=== PATIENT | male | born 1970 | race Caucasian/White ===

== ENCOUNTER 2016-04-17 15:21 | Emergency (ER) | payer OTHER ==
[~2016-04-17] VITALS: Ht 175.3 cm; Wt 95.0 kg
[2016-04-17 15:48] VITALS: BP 117/79; PULSE 78; RESP 16; TEMP 98.5; O2SAT 99
[2016-04-17] MEDS ORDERED: SODIUM CHLORIDE 0.9% FLUSH 5 ML FLUSH IVF PRN (17:00)
[2016-04-17 17:35] VITALS: BP 125/84; PULSE 68; RESP 14; O2SAT 98
--- NOTE | 2016-04-17 17:41 | PD ---
HPI . Right flank pain Chief Complaint: Abdominal Pain Time Seen by Provider: 16:59 Travel History International Travel<30 days: No Contact w/Intl Traveler<30days: No Traveled to known affect area: No History of Present Illness HPI Patient presents complaining with a two-week history of worsening right side pain. He states that it started in his back and migrated to his abdomen. It now hurts in both the back and the abdomen. The baby is sitting position and relieved by standing or lying. He has had no associated symptoms. Specifically no fever, no nausea or vomiting, no urinary tract symptoms. He states that he was seen at an urgent care and had a urine done which was negative. 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, inherited ear disorder) Social History Alcohol Use: No Tobacco Use: No Substance Use: No Allergies-Medications (Allergen,Severity, Reaction): Coded Allergies: No Known Allergies (Unverified , 04/17/16) Review of Systems Except as stated in HPI: all other systems reviewed are Neg General / Constitutional: No: Fever, Chills Gastrointestinal: Positive: Abdominal Pain, No: Nausea, Vomiting, Diarrhea Genitourinary: No: Urgency, Frequency, Dysuria, Hematuria Musculoskeletal: Positive: Myalgias (in the right flank and abdomen.) Physical Exam Narrative GENERAL: Healthy-appearing man who does not appear to be in any distress at this time. SKIN: Warm and dry. HEAD: Atraumatic. Normocephalic. EYES: Pupils equal and round. ENT: No nasal bleeding or discharge. Mucous membranes pink and moist. He does have a hearing aid in his right ear. NECK: Trachea midline. Neck is supple. CARDIOVASCULAR: Regular rate and rhythm. Heart sounds are normal. RESPIRATORY: No accessory muscle use. Lungs are clear with full and equal breath sounds. GASTROINTESTINAL: Abdomen soft. Mild right-sided tenderness. No guarding or rebound. Nondistended. MUSCULOSKELETAL: No obvious deformities. No edema. No CVA tenderness. NEUROLOGICAL: Awake and alert. No obvious cranial nerve deficits. Motor grossly within normal limits. Normal speech. PSYCHIATRIC: Appropriate mood and affect; insight and judgment normal. Data Data Last Documented VS Vital Signs Date Time Temp Pulse Resp B/P Pulse Ox O2 Delivery O2 Flow Rate FiO2 1/6/17 17:35 98 Room Air 04/17/16 17:35 68 14 125/84 04/17/16 15:48 98.5 Orders Basic Metabolic Panel (Bmp) (04/17/16 17:00) Complete Blood Count With Diff (04/17/16 17:00) Urinalysis - C+S If Indicated (04/17/16 17:00) Ct Abd/Pel W Iv Contrast(Rout) (04/17/16 17:00) Iv Access Insert/Monitor (04/17/16 17:00) Ecg Monitoring (04/17/16 17:00) Oximetry (04/17/16 17:00) Sodium Chloride 0.9% Flush (Ns Flush) (04/17/16 17:00) Sodium Chlor 0.9% 1000 Ml Inj (Ns 1000 M (04/17/16 18:45) Morphine Inj (Morphine Inj) (04/17/16 18:45) Ondansetron Inj (Zofran Inj) (04/17/16 18:45) Iohexol 350 Inj (Omnipaque 350 Inj) (04/17/16 18:38) Diphenhydramine Inj (Benadryl Inj) (04/17/16 19:00) Labs Laboratory Tests Test 04/17/16 04/17/16 17:30 18:15 White Blood Count 5.6 TH/MM3 Red Blood Count 5.43 MIL/MM3 Hemoglobin 15.5 GM/DL Hematocrit 47.1 % Mean Corpuscular Volume 86.9 FL Mean Corpuscular Hemoglobin 28.5 PG Mean Corpuscular Hemoglobin 32.9 % Concent Red Cell Distribution Width 13.5 % Platelet Count 216 TH/MM3 Mean Platelet Volume 8.1 FL Neutrophils (%) (Auto) 54.0 % Lymphocytes (%) (Auto) 32.8 % Monocytes (%) (Auto) 7.4 % Eosinophils (%) (Auto) 3.6 % Basophils (%) (Auto) 2.2 % Neutrophils # (Auto) 3.1 TH/MM3 Lymphocytes # (Auto) 1.8 TH/MM3 Monocytes # (Auto) 0.4 TH/MM3 Eosinophils # (Auto) 0.2 TH/MM3 Basophils # (Auto) 0.1 TH/MM3 CBC Comment DIFF FINAL Differential Comment Sodium Level 144 MEQ/L Potassium Level 4.0 MEQ/L Chloride Level 108 MEQ/L Carbon Dioxide Level 28.3 MEQ/L Anion Gap 8 MEQ/L Blood Urea Nitrogen 21 MG/DL Creatinine 1.30 MG/DL Estimat Glomerular Filtration 60 ML/MIN Rate Random Glucose 112 MG/DL Calcium Level 8.7 MG/DL Urine Collection Type VOIDED Urine Color STRAW Urine Turbidity CLEAR Urine pH 6.0 Urine Specific [place] 1.020 Urine Protein NEG mg/dL Urine Glucose (UA) NEG mg/dL Urine Ketones NEG mg/dL Urine Occult Blood NEG Urine Nitrite NEG Urine Bilirubin NEG Urine Leukocyte Esterase TRACE Urine WBC 3-5 /hpf Urine Squamous Epithelial 0-5 /hpf Cells Microscopic Urinalysis Comment CULT NOT INDICATED MDM Medical Decision Making Medical Screen Exam Complete: Yes Emergency Medical Condition: Yes Differential Diagnosis Differential diagnosis of flank pain includes but is not limited to kidney stone , pyelonephritis, musculoskeletal pain, PE Narrative Course Patient presents for evaluation of flank pain which has been ongoing for about 2 weeks. CBC has a normal white count. UA is negative. CT shows some constipation. Diagnosis Primary Impression: Right flank pain Additional Impression: Constipation Qualified Code: K59.00 - Constipation, unspecified constipation type Additional Instructions: Milk of magnesia until stools pass easily Disposition: 01 DISCHARGE HOME Condition: Stable Alaina Marcano MD Apr 17, 2016 17:41
[2016-04-17 17:52] LABS: AUTOMATED NEUTROPHIL # 3.1 TH/MM3 (1.8-7.7); BASOPHIL # 0.1 TH/MM3 (0-0.2); BASOPHIL % 2.2 % (0.0-2.0); EOSINOPHIL # 0.2 TH/MM3 (0-0.4); EOSINOPHIL % 3.6 % (0.0-4.0); HEMATOCRIT 47.1 % (39.0-51.0); HEMO FLAGS DIFF FINAL; LYMPH % 32.8 % (9.0-44.0); LYMPHOCYTE # 1.8 TH/MM3 (1.0-4.8); MEAN CELL VOLUME 86.9 FL (80.0-100.0); MEAN CORPUSCULAR HEMOGLOBIN 28.5 PG (27.0-34.0); MEAN CORPUSCULAR HGB CONC 32.9 % (32.0-36.0); MONO % 7.4 % (0.0-8.0); PLATELET COUNT 216 TH/MM3 (150-450); RED BLOOD COUNT 5.43 MIL/MM3 (4.50-5.90); RED CELL DISTRIBUTION WIDTH 13.5 % (11.6-17.2); WHITE BLOOD COUNT 5.6 TH/MM3 (4.0-11.0)
[2016-04-17 18:05] LABS: BICARBONATE 28.3 MEQ/L (21.0-32.0)
[2016-04-17 18:22] LABS: BLOOD, URINE NEG (NEG); GLUCOSE,URINE NEG (NEG); KETONE, URINE NEG (NEG); NITRITE,URINE NEG (NEG)
[2016-04-17] MEDS ORDERED: IOHEXOL 350 MG/ML 10 ML VIAL (for RAD DIAG) IV ONE (18:38)
[2016-04-17] MEDS ORDERED: ONDANSETRON HCL 4 MG/2 ML VIAL IV PUSH ONE (18:45)
[2016-04-17] MEDS ORDERED: SODIUM CHLOR 0.9% 1000 ML INJ 1,000 ML IV ONE (18:45)
[2016-04-17] MEDS ORDERED: MORPHINE SULFATE 4 MG/ML INJ IV PUSH ONE (18:45)
[2016-04-17 18:49] LABS: COMMENT (UR) CULT NOT INDICATED; CULTURE IF INDICATED CULT NOT INDICATED; METHOD OF COLLECTION VOIDED; SQUAMOUS EPITHELIAL CELL URINE 0-5 /hpf (0-5); URINE COLOR STRAW (YELLW/STRAW)
--- NOTE | 2016-04-17 18:56 | RADHPO ---
EXAM DATE/TIME: 04/17/2016 18:20 [place] COMPARISON: No previous studies available for comparison. INDICATIONS : Right sided abdominal pain for two weeks. IV CONTRAST: 96 cc Omnipaque 300 (iohexol) IV ORAL CONTRAST: No oral contrast ingested. RADIATION DOSE: 18.77 CTDIvol (mGy) MEDICAL HISTORY : None SURGICAL HISTORY : None. ENCOUNTER: Initial ACUITY: 2 weeks PAIN SCALE: 6/10 LOCATION: Right Abdomen. TECHNIQUE: Volumetric scanning of the abdomen and pelvis was performed. Using automated exposure control and ad justment of the mA and/or kV according to patient size, radiation dose was kept as low as reasonably achievable to obtain optimal diagnostic quality images. FINDINGS: Lung bases clear. Calcified right hilar lymph nodes. No acute findings in the liver, spleen, adrenals , kidneys or pancreas. No calcified gallstones or biliary ductal dilatation. There are calcified gran ulomata in the spleen. Mild constipation. No bowel obstruction. No free air or free fluid. No acute bony abnormalities. Calcified right hilar lymph nodes also noted. Bone island proximal right femur. CONCLUSION: 1. No acute findings on abdomen and pelvic CT. Mild constipation. Remote granulomatous disease. Graham Quinones MD on April 17, 2016 at 18:48 Board Certified Radiologist. This report was verified electronically.
[2016-04-17] MEDS ORDERED: diphenhydrAMINE HCL 50 MG/ML VIAL IV PUSH ONE (19:00)
[2016-04-17 19:59] VITALS: BP 128/76; PULSE 73; RESP 18; O2SAT 97
== END 2016-04-17 20:02 | disposition home or self-care (01) ==
LOC: PHED 15:21
DX: R10.9 Unspecified abdominal pain (principal); K59.00 Constipation, unspecified; M54.9 Dorsalgia, unspecified
CPT/HCPCS: 74177; 80048; 81001; 85025; 96374; 96375; 99284; J1200; J2270; J2405; J7030; Q9967